=== PATIENT | female | born 1960 | race Caucasian/White ===

== ENCOUNTER 2023-03-18 14:25 | Outpatient (CLI) | payer OTHER, SELFPAY ==
--- NOTE | 2023-03-18 15:30 | CRLHL7_ITS ---
For Patients: As a result of the Century Cures Act, medical imaging exams and procedure reports are released immediately into your electronic medical record. You may view this report before your referring provider. If you have questions, please contact your health care provider. Indication: Abdominal pain, right-sided, history of renal stones Technique: Volumetric multidetector CT images of the abdomen and pelvis were without the administration of intravenous contrast. Comparison: None available. Findings: The lung bases are clear. The liver is normal in attenuation without intrahepatic biliary ductal dilatation. The gallbladder is unremarkable without evidence of radiopaque calculus. There is no significant common biliary ductal dilatation or abrupt cut off. The spleen is normal in attenuation and size. The stomach and duodenum are grossly unremarkable. The pancreas is normal in attenuation without significant atrophy. There is a small fat containing adenoma within the left adrenal gland. Otherwise the adrenal glands are unremarkable. There is severe right-sided hydronephrosis and hydroureter with demonstration of 7.0 millimeter calculus at the right ureterovesicular junction. No evidence of additional obstructive uropathy. Moderate stool seen throughout the colon with minimal distal colonic diverticulosis without evidence of diverticulitis. The appendix is unremarkable. There is no significant mesenteric, retroperitoneal, or pelvic sidewall lymph nodes. The aorta is nonaneurysmal. There is no significant atherosclerotic disease appreciated. The solid pelvic viscera are grossly unremarkable. There is no free fluid or free air. The anterior abdominal wall is intact without significant hernias. The lumbar vertebral body heights are grossly maintained in satisfactory alignment without evidence of displaced fracture, lytic or blastic lesion. Impression: Severe right-sided hydronephrosis and hydroureter with demonstration of a 7.0 millimeter calculus at the right ureterovesicular junction. Please note that all CT scans at this facility use dose modulation, iterative reconstruction, and/or weight-based dosing when appropriate to reduce radiation dose to as low as reasonably achievable. Dictated by Caio Fernández MD @ 03/18/2023 4:45:08 PM (Electronically Signed)
== END 2023-03-18 14:26 | disposition home or self-care (01) ==
PROVIDERS: PCP Physician Assistant Medical; Visit Provider Emergency Medicine
DX: N20.0 Calculus of kidney (principal); R31.9 Hematuria, unspecified
CPT/HCPCS: 74176; 86140; 87086

== ENCOUNTER 2024-05-13 08:45 | Outpatient (CLI) | payer OTHER, SELFPAY ==
--- NOTE | 2024-05-13 09:00 | CRLHL7_ITS ---
For Patients: As a result of the 21st Century Cures Act, medical imaging exams and procedure reports are released immediately into your electronic medical record. You may view this report before your referring provider. If you have questions, please contact your health care provider. INDICATION: RT MASTOID PAIN, SWELLING TECHNIQUE: CT of the temporal bones without contrast. Coronal and axial small field of view reconstructions of both temporal bones are included. COMPARISON: No prior studies are available for comparison at this institution. FINDINGS: RIGHT temporal bone: The external auditory canal is widely patent. No EAC stenosis or obstruction. The tympanic membranes are not thickened. The right middle ear is clear. No material is present within the sinus tympani. The ossicles are normal in appearance and location with no erosions or dislocation. The otic capsule is normal in appearance. No sclerosis within the labyrinthine canal. No fistula between the labyrinth and the middle ear. The vestibule and semicircular canals are normal in morphology with no evidence of semicircular canal dehiscence. Normal cochlear morphology with appropriate number of turns. Vestibular aqueduct is normal in size. Facial nerve canal is intact and normal in course/caliber. Petrous apex is normal. Mastoid air cells are clear. The carotid canal and jugular foramen are normal. LEFT temporal bone: The external auditory canal is widely patent. No EAC stenosis or obstruction. The tympanic membranes are not thickened. The left middle ear is clear. No material is present within the sinus tympani. The ossicles are normal in appearance and location with no erosions or dislocation. The otic capsule is normal in appearance. No sclerosis within the labyrinthine canal. No fistula between the labyrinth and the middle ear. The vestibule and semicircular canals are normal in morphology with no evidence of semicircular canal dehiscence. Normal cochlear morphology with appropriate number of turns. Vestibular aqueduct is normal in size. Facial nerve canal is intact and normal in course/caliber. Petrous apex is normal. Mastoid air cells are clear. The carotid canal and jugular foramen are normal. OTHER: No fracture or significant degenerative change, lytic or blastic process is demonstrated in the skull base. Joint space narrowing and spurring at the right temporomandibular joint noted with subchondral sclerosis and near [id number] alignment. Small adjacent ossicles are present measuring up to 2.3 millimeters. Normal left TMJ. The imaged intracranial structures are normal in appearance. Orbits are normal. Imaged soft tissue structures are normal in appearance. The paranasal sinuses demonstrate mild mucosal thickening within the visualized sphenoid and maxillary sinuses. Mild cerumen within the right external auditory canal. Incidental sub cm lymph nodes associated with the parotid glands. IMPRESSION: Unremarkable CT of the temporal bones. Mastoid air cells are clear. No middle ear effusion or cholesteatoma. 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 Mild bilateral sinus disease. Please note that all CT scans at this facility use dose modulation, iterative reconstruction, and/or weight-based dosing when appropriate to reduce radiation dose to as low as reasonably achievable. Dictated by Joaquín Zapata MD @ 05/13/2024 10:24:38 AM (Electronically Signed)
== END 2024-05-13 08:46 | disposition home or self-care (01) ==
LOC: CT 08:46
PROVIDERS: PCP Physician Assistant Medical; Visit Provider Physician Assistant Medical
DX: H92.09 Otalgia, unspecified ear (principal); M19.09 Primary osteoarthritis, other specified site; J32.9 Chronic sinusitis, unspecified
CPT/HCPCS: 70480